=== PATIENT | female | born 1935 | race Caucasian/White ===

== ENCOUNTER 2019-11-15 11:03 | Inpatient (IN) | payer OTHER, MEDICAID ==
[~2019-11-15] VITALS: Ht 157.5 cm; Wt 74.8 kg
[2019-11-15 11:24] VITALS: BP_SYST 105
--- NOTE | 2019-11-15 12:00 | NUR ---
Patient to ER bed 05 to gown for evaluation. Side rails up.
[2019-11-15] MEDS ORDERED: NACL 0.9% 1,000 ML IV ONE (12:04)
--- NOTE | 2019-11-15 12:20 | NUR ---
pt arrives from SNF via BLS d/t increasing cough and congestion. Pt is currently afebrile. environmental monitoring technician placed.
--- NOTE | 2019-11-15 12:30 | NUR ---
ER at bedside examining patient.
[2019-11-15 12:49] LABS: BASOPHILS # (AUTO) 0.1 K/uL (0.0-0.2); BASOPHILS % (AUTO) 0.3 % (0.0-2.0); EOSINOPHILS # (AUTO) 0.1 K/uL (0.0-0.4); EOSINOPHILS % (AUTO) 0.2 % (0.0-4.0); HEMATOCRIT 35.7 % (36-48); LYMPHOCYTES # (AUTO) 1.9 K/uL (1.0-5.5); LYMPHOCYTES % (AUTO) 8.7 % (20.5-51.5); MEAN CORPUSCULAR HEMOGLOBIN 30 pg (27-31); MEAN CORPUSCULAR HGB CONC 34 % (32-36); MEAN CORPUSCULAR VOLUME 88 fL (79.0-98.0); MONOCYTES # (AUTO) 2.4 K/uL (0.0-1.0); MONOCYTES % (AUTO) 11.3 % (1.7-9.3); NEUTROPHILS % (AUTO) 79.5 % (40.0-70.0); PLATELET COUNT (AUTO) 475 K/uL (130-430); RED BLOOD CELL COUNT(AUTO) 4.07 MIL/uL (4.2-6.2); RED CELL DISTRIBUTION WIDTH 13.6 % (9.0-15.0); WHITE BLOOD COUNT (AUTO) 21.4 K/uL (4.8-10.8)
[2019-11-15 12:55] LABS: CALCIUM 9.8 mg/dL (8.4-11.0); CHLORIDE 92 mmol/L (98-107); CREATININE 0.69 mg/dL (0.55-1.30); GLUCOSE 124 mg/dL (70-99); POTASSIUM 4.8 mmol/L (3.5-5.1); SODIUM SERUM 121 mmol/L (136-145); UREA NITROGEN, BLOOD 11 mg/dL (8-21)
[2019-11-15 12:56] LABS: ANION GAP < 3 (5-15)
[2019-11-15 12:59] LABS: ALANINE AMINOTRANSFERASE 16 U/L (12-78); ALBUMIN 2.6 g/dL (3.4-4.8); AMYLASE 22 U/L (0-100); ASPARTATE AMINOTRANSFERASE 12 U/L (10-37); LIPASE 65 U/L (73-393); TOTAL BILIRUBIN 0.6 mg/dL (0.0-1.0)
[2019-11-15] MEDS ORDERED: IPRATROPIUM BROM 0.5 MG/2.5 ML VIAL.NEB (ATROVENT) INH ONE (13:00)
[2019-11-15] MEDS ORDERED: methylPREDNISolone SOD SUCC/PF 62.5 MG/ML VIAL IVP ONE (13:00)
[2019-11-15] MEDS ORDERED: ALBUTEROL SULFATE 0.083% 2.5 MG/3 ML VIAL.NEB INH ONE (13:00)
[2019-11-15 13:10] LABS: INR 1.1 (0.8-1.2); PROTHROMBIN TIME 10.8 SECS (9.5-12.5)
--- NOTE | 2019-11-15 13:30 | NUR ---
# 22 gauge angiocath placed to LAC. Use of asceptic technique. Opsite placed over site. Blood return noted. Blood for lab drawn from site. Flushed with 10 cc of normal saline. No evidence of infiltration noted. Patient tolerated well.
--- NOTE | 2019-11-15 13:30 | NUR ---
Note undone in EDM - 11/15/19 at 2014 by BERNABE # 24 gauge angiocath placed to left chest. Use of asceptic technique. Opsite placed over site. Blood return noted. Blood for lab drawn from site. Flushed with 10 cc of normal saline. No evidence of infiltration noted. Patient tolerated well.
--- NOTE | 2019-11-15 13:45 | NUR ---
medicated the pt w/ Solu medrol, Rocephin, and NS per MD order
[2019-11-15] MEDS ORDERED: ANT30 PO (13:59)
[2019-11-15] MEDS ORDERED: CAT.1 PO (13:59)
[2019-11-15] MEDS ORDERED: MELA3TAB64 PO (13:59)
[2019-11-15] MEDS ORDERED: POTA20PA30 PO (13:59)
[2019-11-15] MEDS ORDERED: DOCU250C14 PO (13:59)
[2019-11-15] MEDS ORDERED: ALEN10TA7 PO (13:59)
[2019-11-15] MEDS ORDERED: OCUVITE PO (13:59)
[2019-11-15] MEDS ORDERED: SPIR25TA6 PO (13:59)
[2019-11-15] MEDS ORDERED: CHOL500037 PO (13:59)
[2019-11-15] MEDS ORDERED: ACET325T53 PO (13:59)
[2019-11-15] MEDS ORDERED: CARV12.548 PO (13:59)
--- NOTE | 2019-11-15 14:00 | NUR ---
Medication reconciliation completed with information provided by patient. Any prior medication reconciliation on file was reviewed and corrected.
--- NOTE | 2019-11-15 14:22 | NUR ---
Admission: Received from ER on a gurney with the diagnosis of Pleural Effusion, Pneumonia, Hypoxia. Patient is oriented. Oriented to room. Safety precautions initiated. Call light within reach.
--- NOTE | 2019-11-15 14:34 | NUR ---
Patient will be admitted to care of Dr Diego . Admitted to Tele unit. Will go to room 114A. Belongings list completed. Complete and up to date summary report printed. SBAR report to be given at bedside with opportunity for questions.
[2019-11-15 15:00] VITALS: BP_SYST 113
--- NOTE | 2019-11-15 15:27 | NUR ---
Pulmo consult called: for Dr. Jeffries, regarding pleural effusion/pna/hypoxia, ordered by Dr. Diego, spoke with Delmy.
--- NOTE | 2019-11-15 15:28 | NUR ---
ID consult called: for Dr. Eleno Mcfarland, regarding pleural effusion/pna/hypoxia, ordered by Dr. Mcfarland, spoke with Dania (maybe it was Latricia).
[2019-11-15 15:49] LABS: BILIRUBIN,URINE NEGATIVE (NEGATIVE); BLOOD, URINE NEGATIVE (NEGATIVE); CLARITY/URINE CLOUDY (CLEAR); COLOR,URINE YELLOW (YELLOW); GLUCOSE,URINE NEGATIVE (NEGATIVE); KETONES,URINE TRACE (NEGATIVE); LEUKOCYTE ESTERASE ,URINE TRACE (NEGATIVE); NITRITE, URINE POSITIVE (NEGATIVE); PROTEIN URINE NEGATIVE (NEGATIVE); UROBILINOGEN,URINE 0.2 (0.2-1.0)
[2019-11-15] MEDS ORDERED: IPRATROPIUM/ALBUTEROL SULFATE 3 ML AMPUL.NEB (DUONEB) INH PRN (16:00)
[2019-11-15 16:10] VITALS: BP_SYST 113
--- NOTE | 2019-11-15 16:10 | NUR ---
MD notification to reconcile home meds: Spoke with Dr. Diego regarding home meds, per MD he will reconcile meds himself.
[2019-11-15 17:11] LABS: BACTERIA,URINE MANY /HPF (None Seen); RBC,URINE 0-3 /HPF (0-3)
--- NOTE | 2019-11-15 18:27 | NUR ---
end of shift: Needs attended. No change in assessment.
[2019-11-15] MEDS ORDERED: ACETAMINOPHEN 325 MG TABLET PO SCH (18:30)
[2019-11-15] MEDS ORDERED: cloNIDine HCL 0.1 MG TABLET PO SCH (18:30)
[2019-11-15] MEDS ORDERED: MAG-AL HYDROX/SIMETH 30 ML UDC PO SCH (18:30)
[2019-11-15 19:00] VITALS: BP_SYST 133
[2019-11-15] MEDS ORDERED: IPRATROPIUM/ALBUTEROL SULFATE 3 ML AMPUL.NEB (DUONEB) INH SCH (19:00)
[2019-11-15] MEDS: IPRATROPIUM/ALBUTEROL SULFATE 3 ML AMPUL.NEB (DUONEB) INH SCH (19:44)
--- NOTE | 2019-11-15 19:45 | NUR ---
A/A/O X4.DENIES SOB.COUGHING PRODUCTIVELY WITH YELLOWISH SECRETIONS.AFEBRILE.TELE SHOWED SR.IVF NS @ 40 ML/HR INFUSING WELL.INSTRUCTED TO USE CALL LIGHT NEEDED;WITHIN REACH.
[2019-11-15 20:00] VITALS: BP_SYST 133
[2019-11-15] MEDS: DOCUSATE SODIUM 250 MG CAPSULE PO SCH (21:34)
[2019-11-15] MEDS: BETA-CAROTENE W-C & E/ZN/CU TABLET PO SCH (21:34)
[2019-11-15] MEDS: SPIRONOLACTONE 25 MG TABLET (ALDACTONE) PO SCH (21:38)
[2019-11-15] MEDS: MELATONIN 3 MG TABLET PO SCH (21:38)
[2019-11-15] MEDS: CARVEDILOL 12.5 MG TABLET (COREG) PO SCH (21:40)
[2019-11-15] MEDS: NACL 0.9% 1,000 ML IV SCH (21:56)
[2019-11-15] MEDS ORDERED: PIPERACILLIN/TAZO 3.375 GM in NS 50 ML IV ONE (22:00)
--- NOTE | 2019-11-15 22:00 | NUR ---
STILL COUGHING;EXPLAINED TO PT AWAITING FOR COUGH MED.
[2019-11-15] MEDS: PROMETHAZINE-DM 6.25 MG-15 MG/5 ML UDC PO PRN (23:09)
--- NOTE | 2019-11-15 23:09 | NUR ---
PHENERGAN DM ADM FOR COUGH.
[2019-11-15] MEDS ORDERED: PROMETHAZINE-DM 6.25 MG-15 MG/5 ML UDC ONE (23:11)
--- NOTE | 2019-11-16 | NUR ---
RESTING QUIETLY IN NO ACUTE DISTRESS.
[2019-11-16 00:10] VITALS: BP_SYST 132
[2019-11-16] MEDS: IPRATROPIUM/ALBUTEROL SULFATE 3 ML AMPUL.NEB (DUONEB) INH SCH ×4 (01:05→20:20)
--- NOTE | 2019-11-16 02:00 | NUR ---
ASLEEP IN NO ACUTE DISTRESS.
--- NOTE | 2019-11-16 04:00 | NUR ---
TELE SHOWED SR. IVF INFUSING WELL.
--- NOTE | 2019-11-16 06:50 | NUR ---
IV INFILTRATED & D/C. IV INSERTED ON HER LFA WITH ANGIO #22 X1.IVF NS INFUSING WELL.ENDORSED IN NO ACUTE DISTRESS. SAFETY MAINTAINED.CALL LIGHT WITHIN REACH.
[2019-11-16 07:13] LABS: BASOPHILS % (AUTO) 0.2 % (0.0-2.0); HEMATOCRIT 34.9 % (36-48); HEMOGLOBIN 12.2 g/dL (12.0-16.0); LYMPHOCYTES # (AUTO) 1.2 K/uL (1.0-5.5); LYMPHOCYTES % (AUTO) 6.8 % (20.5-51.5); MEAN CORPUSCULAR HEMOGLOBIN 31 pg (27-31); MEAN CORPUSCULAR HGB CONC 35 % (32-36); MEAN CORPUSCULAR VOLUME 88 fL (79.0-98.0); MONOCYTES # (AUTO) 0.8 K/uL (0.0-1.0); MONOCYTES % (AUTO) 4.3 % (1.7-9.3); NEUTROPHILS % (AUTO) 88.7 % (40.0-70.0); PLATELET COUNT (AUTO) 459 K/uL (130-430); RED BLOOD CELL COUNT(AUTO) 3.99 MIL/uL (4.2-6.2); RED CELL DISTRIBUTION WIDTH 13.8 % (9.0-15.0); WHITE BLOOD COUNT (AUTO) 18.1 K/uL (4.8-10.8)
[2019-11-16 07:25] VITALS: BP_SYST 131
--- NOTE | 2019-11-16 07:30 | NUR ---
AM rounds: Patient is oriented x4. Incontinence of urine care done. Productive cough with thick white phlegm. IV of NS 40cc/hr infusing on the right forearm. Safety precautions maintained. Call light within reach.
[2019-11-16 08:35] LABS: ALANINE AMINOTRANSFERASE 16 U/L (12-78); ALBUMIN 2.3 g/dL (3.4-4.8); ANION GAP 5 (5-15); ASPARTATE AMINOTRANSFERASE 12 U/L (10-37); CHLORIDE 94 mmol/L (98-107); CREATININE 0.47 mg/dL (0.55-1.30); GLUCOSE 131 mg/dL (70-99); POTASSIUM 4.1 mmol/L (3.5-5.1); SODIUM SERUM 126 mmol/L (136-145); TOTAL BILIRUBIN 0.3 mg/dL (0.0-1.0); UREA NITROGEN, BLOOD 7 mg/dL (8-21)
[2019-11-16] MEDS: BETA-CAROTENE W-C & E/ZN/CU TABLET PO SCH ×2 (09:37→20:19)
[2019-11-16] MEDS: CARVEDILOL 12.5 MG TABLET (COREG) PO SCH ×2 (09:37→20:19)
[2019-11-16] MEDS: SPIRONOLACTONE 25 MG TABLET (ALDACTONE) PO SCH ×2 (09:38→20:18)
[2019-11-16] MEDS: DOCUSATE SODIUM 250 MG CAPSULE PO SCH ×2 (09:38→20:18)
[2019-11-16] MEDS: POTASSIUM CHLORIDE 20 MEQ/PKT PACKET PO SCH (09:38)
--- NOTE | 2019-11-16 09:43 | NUR ---
Nutrition Update Art Scale 17 noted. Pt admitted for pleural effusion, pneumonia, hypoxia. Diet: 2 gm Na BMI: 30.2 kg/m2 RD to follow per nutrition care standards.
[2019-11-16 11:41] VITALS: BP_SYST 145
[2019-11-16] MEDS: LEVOFLOXACIN 500 MG/D5W 100 ML IV SCH (12:57)
--- NOTE | 2019-11-16 13:04 | NUR ---
Rounds: Patient's son Elvis is at bedside. Questions and concerns were addressed.
[2019-11-16] MEDS: PROMETHAZINE-DM 6.25 MG-15 MG/5 ML UDC PO PRN ×2 (13:22→21:42)
--- NOTE | 2019-11-16 14:32 | NUR ---
DC Planning: spoke with dr Diego for dc planning, the md is planning for LTAC transfer pending UA, and sputum culture. CM will reeval the dcp for the final dcp order snf vs LTAC need.
[2019-11-16 15:08] VITALS: BP_SYST 122
[2019-11-16] MEDS: NACL 0.9% 1,000 ML IV SCH (16:49)
--- NOTE | 2019-11-16 18:53 | NUR ---
End of shift: Needs attended. No change in assessment.
[2019-11-16 20:00] VITALS: BP_SYST 127
--- NOTE | 2019-11-16 20:00 | NUR ---
A/A/O X4.C/O PAIN ON HER IV SITE & D/C.V/S STABLE.AFEBRILE.TELE SHOWED SR.INSTRUCTED TO USE CALL LIGHT NEEDED; WITHIN REACH.
[2019-11-16] MEDS: MELATONIN 3 MG TABLET PO SCH (20:19)
--- NOTE | 2019-11-16 21:40 | NUR ---
PHENERGAN PO ADM. COUGHING PRODUCTIVELY WITH THICK BEIGE SECRETIONS.
--- NOTE | 2019-11-16 22:00 | NUR ---
IV INSERTED ON HER RIGHT WRIST WITH ANGIO#22 X1. IVF NS @ 40 ML/HR INFUSING WELL.
--- NOTE | 2019-11-17 | NUR ---
V/S STABLE.AFEBRILE.CALL LIGHT WITHIN REACH.
[2019-11-17] MEDS: IPRATROPIUM/ALBUTEROL SULFATE 3 ML AMPUL.NEB (DUONEB) INH SCH ×4 (01:00→19:32)
[2019-11-17 01:05] VITALS: BP_SYST 110
--- NOTE | 2019-11-17 02:00 | NUR ---
INCONTINENT OF URINE,CLEAN & REPOSITIONED BY HEAD OF HUMAN RESOURCES.
--- NOTE | 2019-11-17 04:00 | NUR ---
ASLEEP IN NO ACUTE DISTRESS.
--- NOTE | 2019-11-17 07:00 | NUR ---
ENDORSED IN NO ACUTE DISTRESS.SAFETY MAINTAINED.
[2019-11-17 07:31] LABS: ANION GAP 4 (5-15); CALCIUM 9.6 mg/dL (8.4-11.0); CHLORIDE 94 mmol/L (98-107); CREATININE 0.62 mg/dL (0.55-1.30); GLUCOSE 104 mg/dL (70-99); SODIUM SERUM 127 mmol/L (136-145); UREA NITROGEN, BLOOD 11 mg/dL (8-21)
--- NOTE | 2019-11-17 07:55 | NUR ---
Opening Note Received endorsement from RN. Pt AAOx4, states no pain or distress at this time. IV site intact, patent, IVF infusing. No other complaints at this time.
[2019-11-17 08:01] LABS: BASOPHILS # (AUTO) 0.1 K/uL (0.0-0.2); BASOPHILS % (AUTO) 0.5 % (0.0-2.0); EOSINOPHILS # (AUTO) 0.1 K/uL (0.0-0.4); EOSINOPHILS % (AUTO) 0.7 % (0.0-4.0); HEMATOCRIT 38.1 % (36-48); HEMOGLOBIN 12.9 g/dL (12.0-16.0); LYMPHOCYTES # (AUTO) 2.1 K/uL (1.0-5.5); LYMPHOCYTES % (AUTO) 12.9 % (20.5-51.5); MEAN CORPUSCULAR HEMOGLOBIN 30 pg (27-31); MEAN CORPUSCULAR HGB CONC 34 % (32-36); MEAN CORPUSCULAR VOLUME 88 fL (79.0-98.0); MONOCYTES # (AUTO) 2.1 K/uL (0.0-1.0); MONOCYTES % (AUTO) 12.9 % (1.7-9.3); NEUTROPHILS # (AUTO) 11.7 K/uL (1.8-7.7); PLATELET COUNT (AUTO) 571 K/uL (130-430); RED BLOOD CELL COUNT(AUTO) 4.36 MIL/uL (4.2-6.2); RED CELL DISTRIBUTION WIDTH 13.8 % (9.0-15.0)
[2019-11-17] MEDS: SPIRONOLACTONE 25 MG TABLET (ALDACTONE) PO SCH ×2 (09:00→20:26)
[2019-11-17] MEDS: CARVEDILOL 12.5 MG TABLET (COREG) PO SCH ×2 (09:00→20:25)
[2019-11-17] MEDS: POTASSIUM CHLORIDE 20 MEQ/PKT PACKET PO SCH (09:41)
[2019-11-17] MEDS: BETA-CAROTENE W-C & E/ZN/CU TABLET PO SCH ×2 (09:41→20:24)
[2019-11-17] MEDS: DOCUSATE SODIUM 250 MG CAPSULE PO SCH ×2 (09:41→20:24)
--- NOTE | 2019-11-17 12:01 | NUR ---
Pt states no pain or distress at this time. Pt noted with incontinence void, provided osei care. Pt tolerated well.
[2019-11-17 12:36] VITALS: BP_SYST 121
[2019-11-17] MEDS: LEVOFLOXACIN 500 MG/D5W 100 ML IV SCH (12:40)
--- NOTE | 2019-11-17 16:20 | NUR ---
Pt noted up in chair, pt requests to go back to bed. Assisted pt to bed with 2 person assist. Pt tolerated well. Performed gown change and osei care.
[2019-11-17 16:28] VITALS: BP_SYST 126
[2019-11-17] MEDS: NACL 0.9% 1,000 ML IV SCH (17:55)
--- NOTE | 2019-11-17 19:25 | NUR ---
Endorsed plan of care to night shift manager RN. No signs of acute distress noted, pt states no pain at this time. IV site intact, patent with IVF. No other complaints noted.
[2019-11-17 19:50] VITALS: BP_SYST 123
--- NOTE | 2019-11-17 19:50 | NUR ---
INITIAL NOTES PATIENT IS SITTING IN BED AND TALKING TO THE FAMILY. PATIENT IS STABLE AND SHOWS NO S/S OF RESPIRATORY DISTRESS.PATIENT VERBALIZES NO PAIN. PATIENT SUCCESSFULLY DEMONSTRATES USAGE OF CALL LIGHT AT THIS TIME. PLAN OF CARE IS DISCUSSED WITH PATIENT AND FAMILY. PATIENT VERBALIZES NO PAIN. FALL, SAFETY, ASPIRATION, AND RESPIRATORY PRECAUTIONS WILL BE IN PLACE THROUGHOUT THE SHIFT.
--- NOTE | 2019-11-17 19:58 | NUR ---
PATIENT REFUSED SCDS; DESPITE EDUCATIONAL EFFORTS. WILL CONTINUE TO EDUCATE.
[2019-11-17] MEDS: MELATONIN 3 MG TABLET PO SCH (20:26)
--- NOTE | 2019-11-17 20:43 | NUR ---
PARTIAL BED BATH PARTIAL BED BATH GIVEN AT THIS TIME. PATIENT TOLERATED WELL.
[2019-11-17] MEDS: PROMETHAZINE-DM 6.25 MG-15 MG/5 ML UDC PO PRN (21:42)
--- NOTE | 2019-11-17 22:43 | NUR ---
ROUNDING PATIENT IS SLEEPING IN BED AND STABLE. NO S/S OF RESPIRATORY DISTRESS NOTED. CALL LIGHT IN REACH. BED IS LOCKED, ALARMED, AND AT THE LOWEST POSITION.
[2019-11-18 01:40] VITALS: BP_SYST 116
[2019-11-18] MEDS: IPRATROPIUM/ALBUTEROL SULFATE 3 ML AMPUL.NEB (DUONEB) INH SCH ×3 (07:00→19:57)
--- NOTE | 2019-11-18 07:41 | NUR ---
CLOSING NOTES PATIENT IS STABLE AND LAYING IN BED. NO S/S OF RESPIRATORY DISTRESS NOTED. CALL LIGHT IN REACH. BED IS LOCKED, ALARMED, AND AT THE LOWEST POSITION. FALL, SAFETY, ASPIRATION, AND RESPIRATORY PRECAUTIONS HAS BEEN PLACED THROUGHOUT THE SHIFT. REPORT WAS GIVEN TO ROGELIO PANTOJA BY BEDSIDE.
[2019-11-18 08:00] VITALS: BP_SYST 143
--- NOTE | 2019-11-18 08:00 | NUR ---
RN INITIAL NOTES RECEIVE PATIENT IN BED ALERT AWAKE AND VERBAL , NO DISTRESS , RESP EVEN AND UNLABORED , NO PAIN AT THIS TIME , PATIENT AWARE PLAN OF CARE
[2019-11-18] MEDS: BETA-CAROTENE W-C & E/ZN/CU TABLET PO SCH ×2 (08:54→20:14)
[2019-11-18] MEDS: POTASSIUM CHLORIDE 20 MEQ/PKT PACKET PO SCH (08:55)
[2019-11-18] MEDS: CARVEDILOL 12.5 MG TABLET (COREG) PO SCH ×2 (08:55→20:13)
[2019-11-18] MEDS: DOCUSATE SODIUM 250 MG CAPSULE PO SCH ×2 (08:55→20:14)
[2019-11-18] MEDS: SPIRONOLACTONE 25 MG TABLET (ALDACTONE) PO SCH ×2 (08:56→20:14)
--- NOTE | 2019-11-18 09:57 | NUR ---
ROUNDS PATIENT NOT IN ANY DISTRESS NEW IV LINE REINSERTED , NO PAIN
[2019-11-18 11:15] VITALS: BP_SYST 149
[2019-11-18 12:20] VITALS: BP_SYST 127
--- NOTE | 2019-11-18 12:30 | NUR ---
DR CUENCA ROUNDS PATIENT SEEN BY DR CUENCA DISCUSSED PATIENT CONDITION WITH ON AND OFF COUGH NO FEVER AND STILL TO MONITOR BREATHING SATING TO 94% ON O2 @ 2 L/MIN
[2019-11-18] MEDS: LEVOFLOXACIN 500 MG/D5W 100 ML IV SCH (12:54)
[2019-11-18] MEDS: PROMETHAZINE-DM 6.25 MG-15 MG/5 ML UDC PO PRN ×2 (12:59→20:15)
--- NOTE | 2019-11-18 15:30 | NUR ---
Discharge Planning: DCP faxed pt referral to [facility] (f [phone] p [phone]) DCP to follow up
[2019-11-18 16:17] VITALS: BP_SYST 130
--- NOTE | 2019-11-18 16:32 | NUR ---
ROUNDS PATIENT AWAKE AND VERBAL , INFORMED DC PLAN BACK TO [facility]
[2019-11-18] MEDS: NACL 0.9% 1,000 ML IV SCH (18:13)
--- NOTE | 2019-11-18 18:17 | NUR ---
ENDORSEMENT [id number]
--- NOTE | 2019-11-18 18:34 | NUR ---
ENDORSEMENT WILL ENDORSED TO NEXT SHIFT CONT CARE, FOR DC PLANNING BACK TO SNF IN AM , PATIENT VISITED BY SON AND NO DISTRESS
--- NOTE | 2019-11-18 19:10 | NUR ---
OPENING NOTES Receive report from morning shift nurseHaylie RN. Patient AOx4. No signs of respiratory distress noted. ON 2L of oxygen via nasal cannula, attached and secured. IVF infusing well, patency noted. Denies pain and discomfort at this time. Call light with in reach, patient educated to use call light when assistance is needed, patient verbalized understanding. Bed locked and in lowest position. Bed alarm on. Safety precautions in place. Will continue to monitor patient.
[2019-11-18] MEDS: MELATONIN 3 MG TABLET PO SCH (20:14)
--- NOTE | 2019-11-18 20:14 | NUR ---
MED PASS/PERICARE Due medication given at this time. Patient tolerated well. Patient denies pain and discomfort at this time. Needs met and attended. Tona care done by RN. No signs of respiratory distress and discomfort noted. Breathing even and unlabored. Safety precautions in place. Will continue to monitor patient.
[2019-11-18 20:25] VITALS: BP_SYST 122
--- NOTE | 2019-11-18 23:30 | NUR ---
RN ROUNDS Patient asleep at this time. No signs of respiratory distress and discomfort noted. Breathing even and unlabored. On 2L of oxygen via nasal cannula, attached and secured. HOB raised. IVF infusing well. Safety precautions in place. Will continue to monitor
[2019-11-19 00:30] VITALS: BP_SYST 108
[2019-11-19] MEDS: IPRATROPIUM/ALBUTEROL SULFATE 3 ML AMPUL.NEB (DUONEB) INH SCH ×4 (01:47→19:32)
[2019-11-19] MEDS ORDERED: ALENDRONATE 70 MG TABLET PO SCH (06:00)
--- NOTE | 2019-11-19 06:07 | NUR ---
CLOSING NOTES Patient awake at this time, patient watching TV. Tona care/ in continence care done at this time. Patient denies pain and discomfort at this time. No signs of respiratory distress and discomfort noted. SCD's operating well. IVF infusing well, patency noted. Needs attended. Call light with in reach. Bed locked and in lowest position. Safety precautions in place. All needs met throughout the shift. Will continue to monitor patient until endorsed to oncoming shift nurse for continuity of care.
[2019-11-19 07:28] LABS: BASOPHILS # (AUTO) 0.1 K/uL (0.0-0.2); BASOPHILS % (AUTO) 0.5 % (0.0-2.0); EOSINOPHILS # (AUTO) 0.4 K/uL (0.0-0.4); EOSINOPHILS % (AUTO) 2.1 % (0.0-4.0); HEMATOCRIT 38.7 % (36-48); HEMOGLOBIN 13.1 g/dL (12.0-16.0); LYMPHOCYTES # (AUTO) 2.9 K/uL (1.0-5.5); LYMPHOCYTES % (AUTO) 16.3 % (20.5-51.5); MEAN CORPUSCULAR HEMOGLOBIN 30 pg (27-31); MEAN CORPUSCULAR HGB CONC 34 % (32-36); MEAN CORPUSCULAR VOLUME 88 fL (79.0-98.0); MONOCYTES # (AUTO) 1.6 K/uL (0.0-1.0); NEUTROPHILS % (AUTO) 72.1 % (40.0-70.0); PLATELET COUNT (AUTO) 607 K/uL (130-430); RED BLOOD CELL COUNT(AUTO) 4.39 MIL/uL (4.2-6.2)
[2019-11-19 07:33] LABS: ANION GAP 3 (5-15); CALCIUM 9.5 mg/dL (8.4-11.0); CHLORIDE 92 mmol/L (98-107); CREATININE 0.68 mg/dL (0.55-1.30); GLUCOSE 136 mg/dL (70-99); POTASSIUM 3.7 mmol/L (3.5-5.1); SODIUM SERUM 126 mmol/L (136-145); UREA NITROGEN, BLOOD 12 mg/dL (8-21)
--- NOTE | 2019-11-19 07:50 | NUR ---
INITIAL NOTE RECEIVED PT IN BED, NO S/S OF DISTRESS OR SOB NOTED, PT HAS NO C/O PAIN AT THIS TIME, PT IN STABLE CONDITION. PT AAOX4, VERBAL, IV CATHETER PATENT, NO SIGNS OF INFECTION OR INFILTRATION NOTED, RUNNING IV FLUIDS ORDERED. PT HAS BILATERAL SCD'S IN PLACE. PT ON OXYGEN 2 LITERS VIA NASAL CANNULA, SATURATION OF 96%. BED AT LOWEST POSITION, CALL LIGHT WITHIN REACH, WILL CONTINUE TO MONITOR PT FOR ANY CHANGES, FALL AND SAFETY PRECAUTIONS IN PLACE.
[2019-11-19 08:47] VITALS: BP_SYST 128
[2019-11-19] MEDS: POTASSIUM CHLORIDE 20 MEQ/PKT PACKET PO SCH (08:51)
[2019-11-19] MEDS: CARVEDILOL 12.5 MG TABLET (COREG) PO SCH ×2 (08:52→21:30)
[2019-11-19] MEDS: DOCUSATE SODIUM 250 MG CAPSULE PO SCH ×2 (08:52→21:30)
[2019-11-19] MEDS: SPIRONOLACTONE 25 MG TABLET (ALDACTONE) PO SCH ×2 (08:52→21:31)
[2019-11-19] MEDS: BETA-CAROTENE W-C & E/ZN/CU TABLET PO SCH ×2 (08:52→21:29)
--- NOTE | 2019-11-19 10:30 | NUR ---
ROUNDS PT IN BED. NO S/S OF DISTRESS OR SOB NOTED, PT HAS NO C/O PAIN AT THIS TIME, PT IN STABLE CONDITION, PT RESTING COMFORTABLY. WILL CONTINUE TO MONITOR PT FOR ANY CHANGES. PT WATCHING TV.
[2019-11-19 12:38] VITALS: BP_SYST 125
--- NOTE | 2019-11-19 13:35 | NUR ---
PT SATING 98% TOOK PT OFF O2 Addendum: 11/19/19 at 1336 by Almita Castelan RT Amended: Links added.
[2019-11-19] MEDS: LEVOFLOXACIN 500 MG/D5W 100 ML IV SCH (13:39)
--- NOTE | 2019-11-19 14:50 | NUR ---
Discharge Planning: DCP spoke to Marylou at [facility] (f [phone] p [phone]) patient will go to room 2C, DCP made charge nurse aware. Addendum: 11/19/19 at 1616 by Jazmín Freire DP DCP spoke to patient nurse patient is accepted to [facility] (f [phone] p [phone]) Rm 2C transportation arranged with [facility] ([phone]) Will Call. Patient packet taken to nurse station.
--- NOTE | 2019-11-19 15:20 | NUR ---
MD ROUNDS DR DARWIN REHMAN, AWARE OF PATIENT'S CONDITION, PER MD LIMA TO D/C TO SNF.
[2019-11-19 16:15] VITALS: BP_SYST 121
--- NOTE | 2019-11-19 16:26 | NUR ---
MD CALL SPOKE WITH DR CUENCA, PER PT NEEDS AN LTAC EVAL. MADE AWARE THAT PT IS NOW ON ROOM AIR, PER SHE WAS STILL HAVING TROUBLE BREATHING WHEN HE SAW HER YESTERDAY, CHARGE NURSE MADE AWARE. CASE MANAGEMENT MADE AWARE.
--- NOTE | 2019-11-19 16:50 | NUR ---
Discharge Planning: DCP patient referral to [facility] (f [phone] p [phone])
--- NOTE | 2019-11-19 16:56 | NUR ---
ROUNDS PT IN BED. NO S/S OF DISTRESS OR SOB NOTED, PT HAS NO C/O PAIN AT THIS TIME, PT IN STABLE CONDITION, PT RESTING COMFORTABLY. WILL CONTINUE TO MONITOR PT FOR ANY CHANGES. PT ACCIDENTALLY REMOVED IV CATHETER, NO ACTIVE BLEEDING, CATHETER INTACT. PT DOES NOT WANT A NEW IV CATHETER IN PLACE. CHARGE NURSE MADE AWARE.
--- NOTE | 2019-11-19 18:49 | NUR ---
CLOSING NOTE PT IN BED, NO S/S OF DISTRESS OR SOB NOTED, PT HAS NO C/O PAIN AT THIS TIME, PT IN STABLE CONDITION. PT AAOX4, VERBAL, PT CONTINUES TO REFUSE TO HAVE IV CATHETER INSERTED. CHARGE NURSE MADE AWARE. PT HAS BILATERAL SCD'S IN PLACE. BED AT LOWEST POSITION, CALL LIGHT WITHIN REACH, WILL ENDORSE CARE OF PT TO INCOMING NURSE, FALL AND SAFETY PRECAUTIONS IN PLACE. Addendum: 11/19/19 at 1851 by Annetta Valdez RN PT CONTINUES TO BE ON ROOM AIR, SATURATION OF 98%
--- NOTE | 2019-11-19 19:10 | NUR ---
OPENING NOTES Receive report from morning shift nurseAnnetta RN. Patient AOx4. No signs of respiratory distress noted. ON room air, of 94% oxygen saturation, tolerating well. IVF infusing well, patency noted. Denies pain and discomfort at this time. Call light with in reach, patient educated to use call light when assistance is needed, patient verbalized understanding. Bed locked and in lowest position. Bed alarm on. Safety precautions in place. Will continue to monitor patient.
[2019-11-19 20:00] VITALS: BP_SYST 138
[2019-11-19] MEDS: MELATONIN 3 MG TABLET PO SCH (21:31)
[2019-11-19] MEDS: PROMETHAZINE-DM 6.25 MG-15 MG/5 ML UDC PO PRN (21:31)
--- NOTE | 2019-11-19 21:31 | NUR ---
MED PASS Due medication given at this time. Patient tolerated well. Patient denies pain and discomfort at this time. Needs met and attended. No signs of respiratory distress and discomfort noted. Breathing even and unlabored. Safety precautions in place. Will continue to monitor patient.
--- NOTE | 2019-11-19 23:00 | NUR ---
ELZBIETA CARE ELZBIETA CARE DONE AT THIS TIME BY RN. PATIENT TOLERATED WELL, PATIENT REPOSITIONED FOR COMFORT. NEEDS ATTENDED. NO SIGNS OF RESPIRATORY DISTRESS NOTED. DENIES PAIN AND DISCOMFORT AT THIS TIME. BREATHING EVEN AND UNLABORED. SAFETY PRECAUTIONS IN PLACE. WILL CONTINUE TO MONITOR PATIENT.
[2019-11-20] VITALS: BP_SYST 129
[2019-11-20] MEDS: IPRATROPIUM/ALBUTEROL SULFATE 3 ML AMPUL.NEB (DUONEB) INH SCH ×3 (00:01→13:23)
--- NOTE | 2019-11-20 02:29 | NUR ---
RN ROUNDS Patient asleep at this time. No signs of respiratory distress and discomfort noted. Breathing even and unlabored. HOB raised. Safety precautions in place. Will continue to monitor
--- NOTE | 2019-11-20 05:10 | NUR ---
ELZBIETA CARE ELZBIETA CARE DONE AT THIS TIME, PATIENT TOLERATED WELL. NO SIGNS OF RESPIRATORY DISTRESS NOTED. DENIES PAIN AND DISCOMFORT AT THIS TIME. SAFETY PRECAUTIONS IN PLACE. WILL CONTINUE TO MONITOR
--- NOTE | 2019-11-20 06:25 | NUR ---
CLOSING NOTES Patient awake, watching TV. Patient denies pain and discomfort at this time. No signs of respiratory distress and discomfort noted. SCD's operating well. Needs attended. Call light with in reach. Bed locked and in lowest position. Safety precautions in place. All needs met throughout the shift. Will continue to monitor patient until endorsed to oncoming shift nurse for continuity of care.
--- NOTE | 2019-11-20 07:51 | NUR ---
Opening Note Patient awake and able to communicate, no signs of distress noted at this time. Patient does not complain of pain. Safety precautions enforced, call light within reach.
[2019-11-20 08:00] VITALS: BP_SYST 144
[2019-11-20] MEDS: POTASSIUM CHLORIDE 20 MEQ/PKT PACKET PO SCH (09:00)
[2019-11-20] MEDS: BETA-CAROTENE W-C & E/ZN/CU TABLET PO SCH (09:00)
[2019-11-20] MEDS: DOCUSATE SODIUM 250 MG CAPSULE PO SCH (09:01)
[2019-11-20] MEDS: CARVEDILOL 12.5 MG TABLET (COREG) PO SCH (09:01)
[2019-11-20] MEDS: SPIRONOLACTONE 25 MG TABLET (ALDACTONE) PO SCH (09:01)
--- NOTE | 2019-11-20 10:00 | NUR ---
RN Rounds Patient in no signs of distress at this time. Patient does not complain of pain.
--- NOTE | 2019-11-20 12:00 | NUR ---
RN Rounds Patient resting at this time. No signs of distress noted. Patient not complaining of pain.
[2019-11-20 12:56] VITALS: BP_SYST 108
[2019-11-20] MEDS: LEVOFLOXACIN 500 MG/D5W 100 ML IV SCH (13:05)
--- NOTE | 2019-11-20 14:00 | NUR ---
RN Rounds Patient in no signs of distress at this time. Patient does not complain of pain.
--- NOTE | 2019-11-20 15:18 | NUR ---
Patient stated she wants to go back to [facility]. Spoke with Cara from Case Management regarding information.
[2019-11-20 15:21] VITALS: BP_SYST 131
--- NOTE | 2019-11-20 15:54 | NUR ---
Case mgt: Per nurse Whittaker, pt doesn't want to go to LTAC--confirmed with Jw at [facility] that bed #2C is still available--Per Jw, bed is available and call report to [phone]--1st grade teacher Tracy is calling Dr. Diego to ask for dc orders to SNF RN
--- NOTE | 2019-11-20 16:00 | NUR ---
RN Rounds Patient resting at this time, no signs of distress noted. Patient does not complain of pain.
--- NOTE | 2019-11-20 16:13 | NUR ---
PAGED PAGED BRITTNEY ALMARAZ AT [phone] SPOKE WITH ELLIOT.
--- NOTE | 2019-11-20 16:27 | NUR ---
Dietitian Recommendations * Recommend continuing 2 gm Na diet * Encourage increase PO intakes LP, RD Please refer to Nutrition Assessment for details. Addendum: 11/20/19 at [address] Amended: Links added.
[2019-11-20 16:43] VITALS: BP_SYST 131
--- NOTE | 2019-11-20 16:53 | NUR ---
Rec'd dc order to SNF--arts administrator or manager Tracy picked up snf packet and took it to nurse station and will call ambulance for BLS potato picker to snf--[facility]----Call report to [phone]--JEANETTE MERCADO
--- NOTE | 2019-11-20 17:02 | NUR ---
AMBULANCE ARRANGEMENT CALLED [facility] AT SPOKE WITH SHARIFA TO SCHEDULE FOR AN 1830 PICKUP.
--- NOTE | 2019-11-20 17:39 | NUR ---
Tried to call family member x 3 times with no answer. Unable to leave voicemail.
--- NOTE | 2019-11-20 17:39 | NUR ---
Report given to Brittany from [facility].
--- NOTE | 2019-11-20 18:00 | NUR ---
RN Rounds Patient eating dinner at this time, no signs of distress noted. Patient does not complain of pain.
--- NOTE | 2019-11-20 18:58 | NUR ---
D/C Patient Patient given medication reconciliation form and D/C instructions. Exit Care provided. Patient verbalized understanding. MD discussed with patient the results and treatment provided. Patient transferred to [facility]. Patient in stable condition, ID band removed. Patient educated on pain management. All belongings sent with patient.
== END 2019-11-20 19:00 | DRG 177 ==
LOC: SED 11:03 → STU 13:23
PROVIDERS: ADMIT Internal Medicine; ATTEND Internal Medicine
DX: J69.0 Pneumonitis due to inhalation of food and vomit (principal); R65.11 Systemic inflammatory response syndrome (SIRS) of non-infectious origin with acute organ dysfunction; J96.01 Acute respiratory failure with hypoxia; J44.0 Chronic obstructive pulmonary disease with (acute) lower respiratory infection; J44.1 Chronic obstructive pulmonary disease with (acute) exacerbation; E87.1 Hypo-osmolality and hyponatremia; I11.0 Hypertensive heart disease with heart failure; I50.9 Heart failure, unspecified; Z90.710 Acquired absence of both cervix and uterus; Z88.0 Allergy status to penicillin; Z79.899 Other long term (current) drug therapy
CPT/HCPCS: 36415; 36600; 71045; 80048; 80053; 81000-TC; 82150-TC; 82803-TC; 83605; 83690-TC; 83880; 84484; 85025; 85610-TC; 85730-TC; 86710; 87040-TC; 87081; 87086; 87205-TC; 93005; 94640; 94760; 96365; 96375; 99285; G0378; J1956; J2930; J7030; J7613

== ENCOUNTER 2022-05-23 16:40 | Inpatient (IN) | payer OTHER, MEDICAID ==
[~2022-05-23] VITALS: Ht 157.5 cm; Wt 86.2 kg
[~2022-05-23 16:40] MED LIST: ACET325T53 PO; ALEN10TA25 PO; ANT30 PO; CARV12.548 PO; CAT.1 PO; CHOL500037 PO; DOCU250C14 PO; MELA3TAB41 PO; OCUVITE PO; POTA20PA30 PO; SPIR25TA6 PO
[2022-05-23 16:50] VITALS: BP_SYST 130
[2022-05-23 17:44] LABS: ANION GAP 5 (5-15); CALCIUM 10.1 mg/dL (8.4-11.0); CHLORIDE 95 mmol/L (98-107); GLUCOSE 135 mg/dL (70-99); POTASSIUM 4.5 mmol/L (3.5-5.1); SODIUM SERUM 130 mmol/L (136-145); UREA NITROGEN, BLOOD 14 mg/dL (8-21)
[2022-05-23 17:50] LABS: BASOPHILS # (AUTO) 0.1 K/uL (0.0-0.2); BASOPHILS % (AUTO) 0.7 % (0.0-2.0); EOSINOPHILS # (AUTO) 0.3 K/uL (0.0-0.4); HEMATOCRIT 41.3 % (36-48); HEMOGLOBIN 13.9 g/dL (12.0-16.0); LYMPHOCYTES # (AUTO) 1.9 K/uL (1.0-5.5); LYMPHOCYTES % (AUTO) 19.6 % (20.5-51.5); MEAN CORPUSCULAR HEMOGLOBIN 29 pg (27-31); MEAN CORPUSCULAR HGB CONC 34 % (32-36); MEAN CORPUSCULAR VOLUME 86 fL (79.0-98.0); MONOCYTES # (AUTO) 1.1 K/uL (0.0-1.0); NEUTROPHILS # (AUTO) 6.3 K/uL (1.8-7.7); NEUTROPHILS % (AUTO) 65.7 % (40.0-70.0); PLATELET COUNT (AUTO) 366 K/uL (130-430); RED CELL DISTRIBUTION WIDTH 13.9 % (9.0-15.0); WHITE BLOOD COUNT (AUTO) 9.6 K/uL (4.8-10.8)
[2022-05-23 17:56] LABS: ALANINE AMINOTRANSFERASE 19 U/L (12-78); ALBUMIN 2.9 g/dL (3.4-4.8); ASPARTATE AMINOTRANSFERASE 11 U/L (10-37); TOTAL BILIRUBIN 0.2 mg/dL (0.0-1.0)
[2022-05-23] MEDS ORDERED: ASPIRIN 325 MG TABLET PO ONE (20:15)
[2022-05-23] MEDS ORDERED: NACL 0.9% 1,000 ML IV ONE (21:30)
[2022-05-23] MEDS ORDERED: A/C/1TAB3 PO (22:25)
[2022-05-23] MEDS ORDERED: CRAN450T9 PO (22:26)
[2022-05-23] MEDS ORDERED: [UNRECOGNIZED DRUG - CODE] PO (22:29)
[2022-05-23] MEDS ORDERED: SPIR25TA6 PO (22:30)
[2022-05-23] MEDS ORDERED: CALC500T87 PO (22:31)
[2022-05-23] MEDS ORDERED: ALEN70TA3 PO (22:39)
[2022-05-24 00:37] VITALS: BP_SYST 116
[2022-05-24 17:21] VITALS: BP_SYST 99
[2022-05-24 20:00] VITALS: BP_SYST 142
[2022-05-24] MEDS: DOCUSATE SODIUM 250 MG CAPSULE PO SCH (20:22)
[2022-05-24] MEDS: CARVEDILOL 12.5 MG TABLET (COREG) PO SCH (20:22)
[2022-05-24] MEDS: SPIRONOLACTONE 25 MG TABLET (ALDACTONE) PO SCH (20:22)
[2022-05-25 01:26] VITALS: BP_SYST 137
[2022-05-25 07:50] LABS: BASOPHILS # (AUTO) 0.1 K/uL (0.0-0.2); BASOPHILS % (AUTO) 1.1 % (0.0-2.0); EOSINOPHILS # (AUTO) 0.3 K/uL (0.0-0.4); EOSINOPHILS % (AUTO) 3.5 % (0.0-4.0); HEMATOCRIT 39.9 % (36-48); HEMOGLOBIN 13.7 g/dL (12.0-16.0); LYMPHOCYTES # (AUTO) 2.2 K/uL (1.0-5.5); LYMPHOCYTES % (AUTO) 28.6 % (20.5-51.5); MEAN CORPUSCULAR HEMOGLOBIN 29 pg (27-31); MEAN CORPUSCULAR HGB CONC 34 % (32-36); MEAN CORPUSCULAR VOLUME 86 fL (79.0-98.0); MONOCYTES % (AUTO) 12.5 % (1.7-9.3); NEUTROPHILS # (AUTO) 4.2 K/uL (1.8-7.7); NEUTROPHILS % (AUTO) 54.3 % (40.0-70.0); PLATELET COUNT (AUTO) 315 K/uL (130-430); RED BLOOD CELL COUNT(AUTO) 4.67 MIL/uL (4.2-6.2); RED CELL DISTRIBUTION WIDTH 13.7 % (9.0-15.0); WHITE BLOOD COUNT (AUTO) 7.7 K/uL (4.8-10.8)
[2022-05-25 07:56] VITALS: BP_SYST 143
[2022-05-25 08:26] LABS: ANION GAP 3 (5-15); CALCIUM 9.3 mg/dL (8.4-11.0); CHLORIDE 96 mmol/L (98-107); GLUCOSE 90 mg/dL (70-99); POTASSIUM 4.3 mmol/L (3.5-5.1); SODIUM SERUM 130 mmol/L (136-145); UREA NITROGEN, BLOOD 10 mg/dL (8-21)
[2022-05-25] MEDS: SPIRONOLACTONE 25 MG TABLET (ALDACTONE) PO SCH ×2 (09:52→20:40)
[2022-05-25] MEDS: POTASSIUM CHLORIDE 20 MEQ/PKT PACKET PO SCH (09:52)
[2022-05-25] MEDS: CARVEDILOL 12.5 MG TABLET (COREG) PO SCH ×2 (09:52→20:41)
[2022-05-25] MEDS: DOCUSATE SODIUM 250 MG CAPSULE PO SCH ×2 (09:53→20:40)
[2022-05-25 12:00] VITALS: BP_SYST 125
[2022-05-25 16:27] VITALS: BP_SYST 144
[2022-05-25 20:20] VITALS: BP_SYST 133
[2022-05-25] MEDS ORDERED: LORazepam 1 MG TABLET PO ONE (20:30)
[2022-05-25] MEDS: LORazepam 1 MG TABLET PO SCH (20:41)
[2022-05-25 22:06] LABS: BILIRUBIN,URINE NEGATIVE (NEGATIVE); BLOOD, URINE NEGATIVE (NEGATIVE); CLARITY/URINE SL CLOUDY (CLEAR); COLOR,URINE YELLOW (YELLOW); GLUCOSE,URINE NEGATIVE (NEGATIVE); KETONES,URINE NEGATIVE (NEGATIVE); LEUKOCYTE ESTERASE ,URINE 2+ (NEGATIVE); NITRITE, URINE NEGATIVE (NEGATIVE); PROTEIN URINE NEGATIVE (NEGATIVE); UROBILINOGEN,URINE 0.2 (0.2-1.0)
[2022-05-25 22:28] LABS: BACTERIA,URINE MANY /HPF (None Seen); RBC,URINE NONE SEEN /HPF (0-3)
[2022-05-25 22:29] LABS: MUCUS,URINE None Seen /LPF (None Seen)
[2022-05-26 04:17] VITALS: BP_SYST 136
[2022-05-26 07:04] LABS: BASOPHILS # (AUTO) 0.1 K/uL (0.0-0.2); BASOPHILS % (AUTO) 1.3 % (0.0-2.0); EOSINOPHILS # (AUTO) 0.3 K/uL (0.0-0.4); EOSINOPHILS % (AUTO) 3.9 % (0.0-4.0); HEMATOCRIT 39.6 % (36-48); HEMOGLOBIN 13.7 g/dL (12.0-16.0); LYMPHOCYTES # (AUTO) 2.2 K/uL (1.0-5.5); LYMPHOCYTES % (AUTO) 28.4 % (20.5-51.5); MEAN CORPUSCULAR HEMOGLOBIN 30 pg (27-31); MEAN CORPUSCULAR HGB CONC 35 % (32-36); MEAN CORPUSCULAR VOLUME 86 fL (79.0-98.0); MONOCYTES # (AUTO) 0.8 K/uL (0.0-1.0); MONOCYTES % (AUTO) 10.8 % (1.7-9.3); NEUTROPHILS # (AUTO) 4.4 K/uL (1.8-7.7); NEUTROPHILS % (AUTO) 55.6 % (40.0-70.0); PLATELET COUNT (AUTO) 303 K/uL (130-430); RED BLOOD CELL COUNT(AUTO) 4.63 MIL/uL (4.2-6.2); RED CELL DISTRIBUTION WIDTH 13.7 % (9.0-15.0); WHITE BLOOD COUNT (AUTO) 7.9 K/uL (4.8-10.8)
[2022-05-26 07:09] LABS: ANION GAP 5 (5-15); CALCIUM 9.5 mg/dL (8.4-11.0); CHLORIDE 97 mmol/L (98-107); CREATININE 0.53 mg/dL (0.55-1.30); GLUCOSE 98 mg/dL (70-99); POTASSIUM 4.6 mmol/L (3.5-5.1); SODIUM SERUM 130 mmol/L (136-145); UREA NITROGEN, BLOOD 14 mg/dL (8-21)
[2022-05-26 08:08] VITALS: BP_SYST 145
[2022-05-26] MEDS: CARVEDILOL 12.5 MG TABLET (COREG) PO SCH ×2 (08:24→21:58)
[2022-05-26] MEDS: DOCUSATE SODIUM 250 MG CAPSULE PO SCH ×2 (08:24→21:58)
[2022-05-26] MEDS: SPIRONOLACTONE 25 MG TABLET (ALDACTONE) PO SCH ×2 (08:24→21:59)
[2022-05-26] MEDS: LORazepam 1 MG TABLET PO SCH ×2 (08:25→21:59)
[2022-05-26] MEDS: POTASSIUM CHLORIDE 20 MEQ/PKT PACKET PO SCH (08:25)
[2022-05-26] MEDS ORDERED: COMMUNICATION ORDER XX ONE (08:45)
[2022-05-26] MEDS: POTASSIUM CHLORIDE 20 MEQ TAB.PRT.SR PO SCH (09:13)
[2022-05-26 12:00] VITALS: BP_SYST 119
[2022-05-26] MEDS ORDERED: nitrofurantoin macrocrystaL 50 MG CAPSULE PO SCH (12:00)
[2022-05-26] MEDS ORDERED: nitrofurantoin macrocrystaL 50 MG CAPSULE PO ONE (13:30)
[2022-05-26 16:00] VITALS: BP_SYST 122
[2022-05-26] MEDS: nitrofurantoin macrocrystaL 50 MG CAPSULE PO SCH ×2 (17:18→23:42)
[2022-05-26 20:54] VITALS: BP_SYST 152
[2022-05-27] VITALS (7 sets, daily range): BP systolic 110–171
[2022-05-27] MEDS: nitrofurantoin macrocrystaL 50 MG CAPSULE PO SCH ×4 (05:42→23:22)
[2022-05-27] MEDS: POTASSIUM CHLORIDE 20 MEQ TAB.PRT.SR PO SCH (09:31)
[2022-05-27] MEDS: CARVEDILOL 12.5 MG TABLET (COREG) PO SCH ×2 (09:32→21:06)
[2022-05-27] MEDS: SPIRONOLACTONE 25 MG TABLET (ALDACTONE) PO SCH ×2 (09:32→21:06)
[2022-05-27] MEDS: DOCUSATE SODIUM 250 MG CAPSULE PO SCH ×2 (09:32→21:04)
[2022-05-27] MEDS: LORazepam 1 MG TABLET PO SCH ×2 (09:33→21:05)
[2022-05-27] MEDS ORDERED: LORazepam 1 MG TABLET PO ONE (18:30)
[2022-05-27] MEDS ORDERED: DIPHENHYDRAMINE HCL 50 MG CAPSULE PO SCH (22:00)
[2022-05-27] MEDS: DIPHENHYDRAMINE HCL 50 MG CAPSULE PO PRN (23:22)
[2022-05-28] VITALS: BP_SYST 113
[2022-05-28] MEDS: nitrofurantoin macrocrystaL 50 MG CAPSULE PO SCH (05:38)
[2022-05-28 08:00] VITALS: BP_SYST 110
[2022-05-28] MEDS: DOCUSATE SODIUM 250 MG CAPSULE PO SCH ×2 (09:18→21:51)
[2022-05-28] MEDS: POTASSIUM CHLORIDE 20 MEQ TAB.PRT.SR PO SCH (09:18)
[2022-05-28] MEDS: CARVEDILOL 12.5 MG TABLET (COREG) PO SCH ×2 (09:19→21:52)
[2022-05-28] MEDS: LORazepam 1 MG TABLET PO SCH ×2 (09:20→21:52)
[2022-05-28] MEDS: SPIRONOLACTONE 25 MG TABLET (ALDACTONE) PO SCH ×2 (09:20→21:52)
[2022-05-28] MEDS: cefTRIAXone 1 GM in D5W 50 ML IV SCH (09:31)
[2022-05-28 12:00] VITALS: BP_SYST 101
[2022-05-28 12:14] LABS: ANION GAP 3 (5-15); CALCIUM 10.6 mg/dL (8.4-11.0); CHLORIDE 94 mmol/L (98-107); CREATININE 0.62 mg/dL (0.55-1.30); GLUCOSE 105 mg/dL (70-99); POTASSIUM 4.5 mmol/L (3.5-5.1); SODIUM SERUM 129 mmol/L (136-145); UREA NITROGEN, BLOOD 19 mg/dL (8-21)
[2022-05-28 16:00] VITALS: BP_SYST 112
[2022-05-28 20:00] VITALS: BP_SYST 133
[2022-05-28] MEDS: DIPHENHYDRAMINE HCL 50 MG CAPSULE PO PRN (21:51)
[2022-05-29 01:11] VITALS: BP_SYST 116
[2022-05-29 07:26] VITALS: BP_SYST 115
[2022-05-29] MEDS: POTASSIUM CHLORIDE 20 MEQ TAB.PRT.SR PO SCH (09:17)
[2022-05-29] MEDS: SPIRONOLACTONE 25 MG TABLET (ALDACTONE) PO SCH (09:18)
[2022-05-29] MEDS: CARVEDILOL 12.5 MG TABLET (COREG) PO SCH (09:18)
[2022-05-29] MEDS: DOCUSATE SODIUM 250 MG CAPSULE PO SCH (09:19)
[2022-05-29] MEDS: LORazepam 1 MG TABLET PO SCH (09:19)
[2022-05-29] MEDS: cefTRIAXone 1 GM in D5W 50 ML IV SCH (09:22)
[2022-05-29 12:41] VITALS: BP_SYST 137
[2022-05-29] MEDS ORDERED: ROCPM1 IV (13:07)
[2022-05-29 16:10] VITALS: BP_SYST 134
[2022-05-29 16:12] VITALS: BP_SYST 136
== END 2022-05-29 17:28 | DRG 871 ==
LOC: SED 16:40 → STU 21:42 → SED 23:13
PROVIDERS: ADMIT Internal Medicine; ATTEND Internal Medicine
DX: A41.9 Sepsis, unspecified organism (principal); E43 Unspecified severe protein-calorie malnutrition; E87.1 Hypo-osmolality and hyponatremia; N39.0 Urinary tract infection, site not specified; B96.20 Unspecified Escherichia coli [E. coli] as the cause of diseases classified elsewhere; G90.8 Other disorders of autonomic nervous system; F03.90 Unspecified dementia, unspecified severity, without behavioral disturbance, psychotic disturbance, mood disturbance, and anxiety; F32.A Depression, unspecified; I11.0 Hypertensive heart disease with heart failure; I50.9 Heart failure, unspecified; I73.9 Peripheral vascular disease, unspecified; J44.9 Chronic obstructive pulmonary disease, unspecified; M81.0 Age-related osteoporosis without current pathological fracture; M19.90 Unspecified osteoarthritis, unspecified site; R29.810 Facial weakness; Z74.01 Bed confinement status; Z86.73 Personal history of transient ischemic attack (TIA), and cerebral infarction without residual deficits; Z90.710 Acquired absence of both cervix and uterus; Z99.3 Dependence on wheelchair; Z88.0 Allergy status to penicillin; Z68.34 Body mass index [BMI] 34.0-34.9, adult; Z79.899 Other long term (current) drug therapy
CPT/HCPCS: 36415; 70450-TC; 70551; 71045; 76376; 80048; 80053; 81000; 83880; 84484; 85025; 87086; 93005; 93306; 93880; 95816; 96360; 97163-GP; 99285; G0378; J0696; J7060; Q0163